=== PATIENT | female | born 1935 | race Caucasian/White ===

== ENCOUNTER 2017-10-31 12:51 | Observation (INO) | payer OTHER ==
--- NOTE | 2017-10-31 13:04 | CPEKG ---
Heart Rate: 65 RR Interval: 923 P-R Interval: 136 QRSD Interval: 94 QT Interval: 428 QTC Interval: 445 P Howells: -21 QRS Howells: 38 T Wave Howells: 77 EKG Severity - NORMAL ECG - EKG Impression: SINUS RHYTHM Electronically Signed By: Krishan Vernon 31-Oct-2017 13:29:02
--- NOTE | 2017-10-31 13:06 | EDPHY ---
H & P Time Seen by Provider: 10/31/17 13:05 HPI/ROS: CHIEF COMPLAINT: Syncope HISTORY OF PRESENT ILLNESS: EMS arrival. Patient was at home and there was a worker doing some would work on the inside of her house. She was standing and felt a couple of seconds of lightheadedness and then had complete syncope and passed out into the arms of this worker. No injury. She did not have a prodrome of chest pain shortness of breath or headache. No palpitations. She just feels a little bit tired now but no injury. REVIEW OF SYSTEMS: Eye: no change in vision ENT: no sore throat Cardiac: No chest pain, no palpitations Pulmonary: no cough or SOB Abdomen: no vomiting, diarrhea, abdominal pain Musculoskeletal: no back pain or neck pain Skin: no rash Neuro: no headache Constitutional: no fever : no urinary symptoms Patient does describe to me an episode about a month ago where she was talking on the phone to a friend and had about 30 min or she could not talk normally. Did not see a physician for this. A comprehensive 10 point review of systems is otherwise negative aside from elements mentioned in the history of present illness. PAST MEDICAL HISTORY: Thyroid. Workup inpatient in 2016, near syncope and SVT Social history: Nonsmoker General Appearance: Alert and conversant, cooperative. Eyes: No scleral icterus. ENT, Mouth: Normal mucous membranes. Respiratory: Normal respiratory effort, breath sounds equal, lungs are clear to auscultation. Cardiovascular: Regular rate and rhythm. Gastrointestinal: Abdomen is soft and non tender. Neurological: Alert, face symmetric, normal motor and sensory in extremities. Skin: Warm and dry, no rashes. Musculoskeletal: No peripheral edema. Psychiatric: Not agitated. Emergency Department course/MDM: Syncope and 82-year-old woman. Plan for admission for monitoring. She is agreeable. Smoking Status: Never smoked Constitutional: Initial Vital Signs Temperature (C) 36.6 C 10/31/17 12:57 Heart Rate 67 10/31/17 12:57 Respiratory Rate 18 10/31/17 12:57 Blood Pressure 153/93 H 10/31/17 12:57 O2 Sat (%) 98 10/31/17 12:57 O2 Delivery Mode Room Air Allergies/Adverse Reactions: caffeine Allergy (Verified 10/31/17 13:07) Home Medications: Medication Instructions Recorded Levothyroxine [Synthroid 50 mcg 50 mcg PO DAILY06 03/24/16 (*)] Medical Decision Making - Diagnostics EKG Interpretation: 12-lead EKG interpreted by me; official reading is in trace master. My interpretation is sinus rhythm rate 65 otherwise normal. Differential Diagnosis: Differential diagnosis considered for syncope including but not limited to vasovagal syncope, arrhythmia, dehydration, and blood loss. Consult/Admit Bed Type: [facility] - Data Points Laboratory Results: Laboratory Results 10/31/17 13:05 10/31/17 13:05 10/31/17 10/31/17 10/31/17 13:17 13:05 13:05 WBC 4.62 10^3/uL 10^3/uL (3.80-9.50) RBC 4.32 10^6/uL 10^6/uL (4.18-5.33) Hgb 14.2 g/dL g/dL (12.6-16.3) Hct 40.6 % % (38.0-47.0) MCV 94.0 fL fL (81.5-99.8) MCH 32.9 pg pg (27.9-34.1) MCHC 35.0 g/dL g/dL (32.4-36.7) RDW 12.6 % % (11.5-15.2) Plt Count 211 10^3/uL 10^3/uL (150-400) MPV 9.9 fL fL (8.7-11.7) Neut % (Auto) 53.0 % % (39.3-74.2) Lymph % (Auto) 34.0 % % (15.0-45.0) [place] % (Auto) 8.9 % % (4.5-13.0) Eos % (Auto) 3.0 % % (0.6-7.6) Baso % (Auto) 0.9 % % (0.3-1.7) Nucleat RBC Rel Count 0.0 % % (0.0-0.2) Absolute Neuts (auto) 2.45 10^3/uL 10^3/uL (1.70-6.50) Absolute Lymphs (auto) 1.57 10^3/uL 10^3/uL (1.00-3.00) Absolute Monos (auto) 0.41 10^3/uL 10^3/uL (0.30-0.80) Absolute Eos (auto) 0.14 10^3/uL 10^3/uL (0.03-0.40) Absolute Basos (auto) 0.04 10^3/uL 10^3/uL (0.02-0.10) Absolute Nucleated RBC 0.00 10^3/uL 10^3/uL (0-0.01) Immature Gran % 0.2 % % (0.0-1.1) Immature Gran # 0.01 10^3/uL 10^3/uL (0.00-0.10) Sodium 141 mEq/L mEq/L (135-145) Potassium 4.1 mEq/L mEq/L (3.3-5.0) Chloride 107 mEq/L mEq/L (97-110) Carbon Dioxide 22 mEq/l mEq/l (22-31) Anion Gap 12 mEq/L mEq/L (8-16) BUN 17 mg/dL mg/dL (7-23) Creatinine 0.9 mg/dL mg/dL (0.6-1.0) Estimated GFR 60 Glucose 116 mg/dL H mg/dL (70-100) Calcium 10.8 mg/dL H mg/dL (8.5-10.4) Phosphorus 2.5 mg/dL mg/dL (2.5-4.5) POC Troponin I 0.00 ng/mL ng/mL (0.00-0.08) Point of Care Test Results: Chemistry 10/31/17 13:17 POC Troponin I 0.00 ng/mL ng/mL (0.00-0.08) Departure - Departure Disposition: [facility] Inpatient Acute Clinical Impression: Syncope Condition: Good Referrals: Patient,NotPresent [Primary Care Provider] - As per Instructions
[2017-10-31 13:15] LABS: PLATELET COUNT 211 10^3/uL (150-400)
[2017-10-31] MEDS ORDERED: ONDANSETRON DISINTEGRATING 4 MG TAB PO PRN (16:27)
[2017-10-31] MEDS ORDERED: ACETAMINOPHEN 325 MG TAB PO PRN (16:27)
--- NOTE | 2017-10-31 16:55 | GHP ---
[f rep st] HISTORY AND PHYSICAL DATE OF ADMISSION: 10/31/2017 CHIEF COMPLAINT: Syncope, as well as possible TIA 1 month ago. HISTORY OF PRESENT ILLNESS: This is an 82-year-old female brought in by ambulance today for syncope. She was standing outside in her driveway in the sun, talking with a worker. She was standing for a bout 15 minutes. She was not dehydrated. She tells me she had eaten a good breakfast and had no pre ceding nausea, vomiting, or diarrhea. She started to feel lightheaded, felt as if everything were go ing to go black, began to lose consciousness. The worker slowly lowered her to the driveway. He rep orted no seizure activity and brief loss of consciousness. She reports no pain and did not hurt hers elf and did not hit her head. She had no preceding shortness of breath, chest pain, or palpitations. Afterward, she called an ambulance and had 2 or 3 episodes of vomiting in the ambulance. She has h ad a few episodes of syncope over the last year, reports that she is always had vomiting after that. She had a mechanical fall and hit her head about a year ago, where she believes she suffered a concu ssion, although she did not seek any medical help. She also informs me that she had an episode about 1 month ago, where she was sitting at the table wit h her neighbor and all of a sudden was unable to speak. She did not have any other weakness, was not really confused. She describes that the words came out as "blah, blah, blah." She did not seek any medical help after this, although her neighbor wanted to call an ambulance. She has never had a str claus before. She had an MRI here, which showed some calcifications in her basal ganglia. She had no stroke seen on MRI at that point. She does not have any heart disease. There are no known arrhythmi as. PAST MEDICAL/SURGICAL HISTORY: 1. Hypothyroid. 2. Hysterectomy. MEDICATIONS: Please see medication reconciliation. ALLERGIES: Caffeine. FAMILY HISTORY: Reviewed and noncontributory. SOCIAL HISTORY: She does not drink or smoke. She lives above [address] [place]. She dances 4 hours every Sunday. REVIEW OF SYSTEMS: 10-point review of systems is conducted and is negative except per HPI. PHYSICAL EXAM: VITAL SIGNS: Blood pressure 141/98, heart rate 71, respiration rate 14, satting at 9 9% on room air. Temperature is 36.7. GENERAL: The patient is a pleasant female, who is resting com fortably, in no acute distress. Providing all the history herself. She is slightly hard of hearing. HEENT: Normocephalic, atraumatic. CARDIOVASCULAR: Regular rate and rhythm. No murmurs, rubs, or gallops. PULMONARY: Lungs clear to auscultation bilaterally. ABDOMEN: Soft, nontender, nondisten ded. SKIN: No rash. : No Hernandez. NEUROLOGIC: Shows her to be alert and oriented x3. She is sl ightly hard of hearing bilaterally. Otherwise, cranial nerves 2 through 12 are intact. Motor is 5/5 in the upper and lower extremities. Sensation to light touch is intact to the upper and lower extre mities. PSYCHIATRIC: Normal mood and affect. LABS: Basic metabolic panel shows a mildly elevated calcium of 10.8. Troponin is negative. CBC is normal. DATA: 1. I reviewed her chart and imaging, as above. 2. I personally viewed and interpreted her ECG. This shows sinus rhythm. It is a normal EKG. IMPRESSION AND PLAN: 1. Syncope: Suspect vasovagal given subsequent gastrointestinal issues. Will plan to monitor on te lemetry. Check an echocardiogram. Further workup if a source is identified. 2. Possible transient ischemic attack: Occurred 1 month ago. It was associated with lightheadednes s. I am not sure that it is related to her syncope today, however. We will perform standard workup including echocardiogram, telemetry monitoring, ultrasound of her carotids. Next day neurology consu lt has been placed. Will check lipids in the morning, consider starting aspirin and statin based on findings of the above. 3. Hypothyroid: Check TSH and continue her Synthroid. /[id number]/MODL
[2017-11-01] MEDS ORDERED: LEVOTHYROXINE 50 MCG TAB PO SCH (06:00)
[2017-11-01 11:52] VITALS: BP 132/74
--- NOTE | 2017-11-01 12:59 | ASMTCMCOM ---
CM Note CM Note Notes: Patient admitted after a syncopal episode at home. Her workup has been normal, and she does not have a significant medical history. I spoke with patient, and she is eager to get home. She has neighbors nearby who she can rely on. She also has a daughter in [place]; her PCP is there as well. She is very independent and won't have any discharge needs. Date Signed: 11/01/2017 12:59 PM Electronically Signed By:Loreto Avilez RN
--- NOTE | 2017-11-01 13:54 | GCON ---
[f rep st] CONSULTATION NEUROLOGY CONSULT DATE OF CONSULTATION: 11/01/2017 CHIEF COMPLAINT: Transient neurologic symptoms. HISTORY OF PRESENT ILLNESS: The patient is a very pleasant 82-year-old [place] [facility]. She lives by herself. She has been having some syncopal problems, and was brought into the ED yesterday for syncope. In the course of evaluation for syncope, she mentioned to the hospitalist that she had an episode 4 weeks ago approximately of trouble speaking for around 10 minutes. She states she knew what she wanted to say, but the words were not coming out right. There was no loss of consciousness. No alteration of awareness. She denies presyncopal symptoms around that time. She was sitting and talking with a neighbor. She denies any right-sided sensory or motor symptoms or any other focal neurologic symptoms at all. She had a carotid Doppler which showed no significant stenosis. She had a head CT which showed age-related changes. She did have an MRI in 2016 which showed some calcification, otherwise negative. For past medical history, social history, family history, home medications, and allergies, see Dr. Bruce's H and P. PHYSICAL EXAMINATION: VITAL SIGNS: Blood pressure is 125/74. She is afebrile. Heart rate 16. GENERAL: Very pleasant, no acute distress. NEUROLOGIC: Higher mental function. She has no aphasia. Cranial nerves: She has decreased hearing bilaterally. Otherwise, normal 2 through 7. Motor: Normal strength and tone throughout. Sensory: Normal to light touch in all 4 extremities. Coordination is normal in upper extremities. IMPRESSION AND PLAN: 1. Transient neurologic symptoms, resolved. The patient had an isolated event 4 weeks ago of expressive language function. This certainly may have represented a focal left hemisphere transient ischemic attack. Not entirely clear as the event happened a month ago and she does not recall it in great detail. There was no right-sided motor or sensory symptoms with the event. I agree with the plan going forward. Specifically, if the echocardiogram does not show any significant findings or evidence of intracardiac thrombus, I think it would be reasonable to discharge her home on Plavix 75 mg daily. She did not tolerate aspirin in the past due to GI side effects. She also should be on statin therapy for presumed TIA. Finally, she should follow up with Cardiology for ECG monitoring to exclude paroxysmal atrial fibrillation. No further recommendations. We will sign off and follow up as needed. Please do not hesitate to call if there are any questions or changes in neurologic status with this very pleasant patient. Seventy total minutes floor time reviewing previous and current hospital records, counseling the patient, and coordination of care. /[id number]/MODL MTDD
--- NOTE | 2017-11-01 14:10 | ECHO ---
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 Normal global systolic LV function. EF is 63 %. No regional wall motion abnormality. Diastolic dysfunction is present. . Mild mitral valve leaflet calcification is present. Mild mitral valve regurgitation is present. Aortic sclerosis is present. Mild aortic valve regurgitation is present. No aortic valve stenosis is present. Mild tricuspid regurgitation is present. The pulmonary artery pressure is normal. No obvious cardiac source for embolism. Consider LAURA if clinically indicated. Measurements: Chambers Valvular Assessment AV/MV Valvular Assessment TV/PV Normal Normal Normal Name Value Range Name Value Range Name Value Range Ao Naye (2D): 3.3 cm (1.4 cm-2.6 AV Vmax: 1.20 m/s (1 m/s-1.7 TR Vmax: 2.55 mm/s ( - ) cm) m/s) TR PGmax: 26 mmHg ( - ) IVSd (2D): 0.9 cm (0.6 cm-1.1 AV maxP mmHg ( - ) syst. PAP: 31 mmHg ( - ) cm) AV meanP mmHg ( - ) PV Vmax: 0.69 m/s (0.6 m/s-0.9 LVDd (2D): 3.3 cm (3.9 cm-5.3 DENNYS (VTI): 2.3 cm ( - ) m/s) cm) MV E Vmax: 0.63 m/s ( - ) PV PGmax: 2 mmHg ( - ) LVDs (2D): 2.4 cm (2.1 cm-4 MV A Vmax: 0.89 m/s ( - ) cm) MV E/A: 0.71 ( - ) LVPWd (2D): 0.9 cm ( - ) MV PHT: 0.090 s ( - ) LVOTd 2.0 cm 2.0 cm mm MVA (PHT): 2.4 s ( - ) LVEF (BP): 63 % (>=55 %) Patient: CIARA PERDOMO Study Date: 11/01/2017 Page 1 of 2 07:56 AM RVDd(2D): 3.4 cm (1.9 cm-3.8 cmmm) Continued Measurements: Chambers Valvular Assessment AV/MV Valvular Assessment TV/PV Name Value Name Value Name Value LADs: 3.5 cm MV DecTime: 285 m/s CVP (est.): 5 mmHg LADs Lon.1 cm MV E' Septal: 0.05 m/s LA Area: 16.8 cm2 MV E/E' Septal: 13.80 LA Volume: 49 ml MV E/E' Lateral: 9.00 LA Volume Index: 32.5 ml/m2 RA Area: 13.0 cm2 Additional Vessels Name Value Ao Ascendin.3 cm Inferior Vena Cava: 1.1 cm Findings: Left Ventricle: Normal size left ventricle. No LV hypertrophy. Normal global systolic LV function. EF is 63 %. No regional wall motion abnormality. Diastolic dysfunction is present. . Right Ventricle: Normal size right ventricle. Normal RV function. Left Atrium: The left atrium is normal in size. Right Atrium: The right atrium is normal in size. Mitral Valve: The mitral valve is normal in appearance and function. Mild mitral valve leaflet calcification is present. Mild mitral valve regurgitation is present. No mitral stenosis is present. Aortic Valve: The aortic valve is tri-leaflet. Aortic sclerosis is present. Mild aortic valve regurgitation is present. No aortic valve stenosis is present. Tricuspid Valve: The tricuspid valve is normal in appearance and function. Mild tricuspid regurgitation is present. The pulmonary artery pressure is normal. Right ventricular systolic pressure measures 31mmHg. Pulmonic Valve: The pulmonic valve is normal in appearance and function. There is no pulmonic regurgitation seen. Aorta: The aorta is normal. Normal size aortic root measuring 3.3 cm. Normal size ascending aorta measuring 3.3 cm. IVC: The IVC is normal sized. Pericardium: No pericardial effusion. No pleural effusion. (No Signature Object) Patient: CIARA PERDOMO Study Date: 11/01/2017 Page 2 of 2 07:56 AM [id number]
--- NOTE | 2017-11-01 16:00 | GDS ---
[f rep st] DISCHARGE SUMMARY ALL DIAGNOSES: 1. Transient ischemic attack. 2. Syncope, likely vasovagal. 3. Hypothyroid. 4. Hyperlipidemia. HOSPITAL COURSE: An 82-year-old female admitted with syncope. Workup was unremarkable, including te lemetry monitoring, as well as echocardiogram. She also related a history of transient speech diffic ulties about 1 month ago. I suspect that this was a TIA. Her LDL cholesterol is 147, ultrasound of her carotids showed no significant stenosis. She was also seen by Neurology. Given this, we will st art her on Plavix as well as Crestor. I have given her a referral to see Cardiology for consideratio n of a longer-term event monitor. She was seen by Speech who did a cognitive evaluation and she scored 19/30 on her SLUMS. She is slig htly hard of hearing and has some vision issues, I think she would likely score better in better circ umstances. She did, however, have a fall with significant head trauma about 6 months ago and feels a s though she has been mentally slightly slower since then. Notably non-contrast CT of her head was n egative. FOLLOWUP: 1. Dr. Valdez, her PCP for ongoing management of hyperlipidemia. She has an appointment scheduled w susy her on November 15. 2. Cardiology, [facility] will call her tomorrow to schedule an appointment for consideration of an outpatient event monitor. /[id number]/MODL
== END 2017-11-01 16:32 | disposition home or self-care (01) ==
LOC: EDUNIT# → F2W 14:15
PROVIDERS: ADMIT Hospitalist; ATTEND Student in an Organized Health Care Education/Training Program
DX: G45.9 Transient cerebral ischemic attack, unspecified (principal); R55 Syncope and collapse; E03.9 Hypothyroidism, unspecified; E78.5 Hyperlipidemia, unspecified; Z87.820 Personal history of traumatic brain injury
CPT/HCPCS: 70450; 92523; 93005; 93306; 93880; 99285; G0378; G9168; G9169; 84484-PO

== ENCOUNTER → 2018-07-16 | Outpatient (CLI) | payer OTHER | LOC: CIMAGING 15:43 | PROVIDERS: ATTEND Family Medicine | DX: M25.562 Pain in left knee (principal); M25.552 Pain in left hip | CPT/HCPCS: 73502-PO; 73562-PO ==

== ENCOUNTER → 2018-07-23 | Outpatient (CLI) | payer OTHER | LOC: FIMAGING 15:16 | PROVIDERS: ATTEND Family Medicine | DX: M25.552 Pain in left hip (principal); M24.852 Other specific joint derangements of left hip, not elsewhere classified ==